=== PATIENT | female | born 1960 | race Caucasian/White ===

== ENCOUNTER 2020-02-23 06:33 | Outpatient (CLI) | payer BC, OTHER ==
[2020-02-24 10:56] LABS: SARS-CoV-2 MS2 Positive; SARS-CoV-2 N Gene Negative; SARS-CoV-2 S Gene Negative; SARS-CoV-2 orf1ab Negative
== END 2020-02-23 06:34 | disposition home or self-care (01) ==
LOC: LABBT 06:33
PROVIDERS: ATTEND Specialist
DX: Z01.812 Encounter for preprocedural laboratory examination (principal); Z11.59 Encounter for screening for other viral diseases; S02.2XXA Fracture of nasal bones, initial encounter for closed fracture
CPT/HCPCS: 85014; 87635; 93005; 93010; U0003

== ENCOUNTER 2020-02-25 09:17 | Day surgery (SDC) | payer BC ==
[2020-02-23 15:41] VITALS: BMI 24.3
[2020-02-25] MEDS ORDERED: AFRIN NASAL MIST 15 ML BOT ONE (10:31)
[2020-02-25] MEDS ORDERED: Lidocaine 1% w/Epinephrine 1:100K 20 ML VIAL ONE (10:31)
[2020-02-25] MEDS ORDERED: Bacitracin Zinc Ointment 30 gm TUBE ONE (10:31)
[2020-02-25] MEDS ORDERED: Fentanyl 100 MCG/2 ML VIAL ONE (10:49)
[2020-02-25] MEDS ORDERED: PROPOFOL 200 MG/20 ML VIAL ONE (12:18)
[2020-02-25] MEDS ORDERED: Dexamethasone 20 MG/5 ML VIAL ONE (12:18)
[2020-02-25] MEDS ORDERED: Ondansetron PF 4 MG/2 ML Vial ONE (12:18)
[2020-02-25] MEDS ORDERED: Lidocaine 1% PF 5 ML VIAL ONE (12:18)
[2020-02-25] MEDS ORDERED: Hydrocodone-Acetamin 15 ML UDCUP ONE (13:46)
[2020-02-25] MEDS ORDERED: HYDROcodone/Acetaminophen 5/325 mg Tablet ONE (15:00)
--- NOTE | 2020-02-26 05:45 | OP ---
DATE OF PROCEDURE: 02/25/2020 PREOPERATIVE DIAGNOSIS: Comminuted open nasal fracture. POSTOPERATIVE DIAGNOSIS: Comminuted open nasal fracture. PROCEDURES PERFORMED: 1. Closed reduction of comminuted nasal fracture with internal external splinting. 2. Complex wound closure measuring approximately 8 cm. DESCRIPTION OF PROCEDURE: After consent was obtained, the patient was identified and brought to the operating room table and placed in supine position. The patient was positioned for surgery and placed under laryngeal mask anesthesia. Nose was decongested and the wound was debrided. The stellate laceration was closed with 6-0 Monocryl for the deeper tissues and rapidly absorbent gut for the skin. At the completion of procedure, the nasal fractures were reduced and Mills splints were placed intranasally and an external splint was placed with care taken to maintain the reduction of the nasal bones. The patient was then awakened, extubated, and taken to the recovery room in stable condition prior to discharge home. Job ID: [id number]
== END 2020-02-25 14:56 | disposition home or self-care (01) ==
LOC: SDC 09:17
PROVIDERS: ATTEND Specialist
PROC: 0NSBXZZ Reposition Nasal Bone, External Approach (ICD-10-PCS; principal; 2020-02-25)
DX: S02.2XXA Fracture of nasal bones, initial encounter for closed fracture (principal); F41.9 Anxiety disorder, unspecified; Z79.899 Other long term (current) drug therapy
CPT/HCPCS: J1100; J2001; J2405; J2704; J3010

== ENCOUNTER 2020-07-07 13:05 | Emergency (ER) | payer BC, OTHER ==
[2020-07-07 14:11] LABS: #Basophils 0.1 thou/uL (0.0-0.2); #Eosinphils 0.2 thou/uL (0.0-0.7); #Lymphocytes 2.5 thou/uL (1.20-3.40); #Monocytes 0.5 thou/uL (0.11-0.59); #Neutrophils 5.5 thou/uL (1.40-6.50); %Basophils 1.1 % (0.0-1.0); %Eosinophils 2.1 % (0.0-10.0); %Lymphocytes 28.9 % (21.0-51.0); %Monocytes 5.2 % (0.0-10.0); %Neutrophils 62.8 % (42.0-75.0); Hemoglobin 14.8 g/dL (12.0-16.0); Mean Corpuscular HGB CONC 34.2 g/dL (32.0-36.0); Mean Corpuscular Hemoglobin 32.7 pg (27.0-31.0); Mean Corpuscular Volume 95.6 fL (78.0-98.0); Mean Platelet Volume 6.3 fL (7.4-10.4); Platelet Count 343 thou/uL (130-400); RBC Distribution Width 11.7 % (11.5-14.5); Red Blood Cell (RBC) Count 4.51 mill/uL (4.20-5.40); White Blood Cell (WBC) Count 8.7 thou/uL (4.8-10.8)
[2020-07-07 14:12] LABS: Bilirubin Negative (Negative); Blood, Urine Negative (Negative); Clarity Clear (Clear); Glucose, Urine (Dipstick) Normal (Negative); Ketone, Urine Negative (Negative); Leukocyte Negative Leu/uL (Negative); Nitrite Negative (Negative); Protein, Urine (Dipstick) 10 mg/dL (Neg-Trace); Specific Gravity, Urine 1.023 (1.002-1.036); Urobilinogen Normal mg/dL (Less than 2); pH, Urine 6.5 (5.0-9.0)
[2020-07-07 14:29] LABS: ALT (SGPT) 18 U/L (8-55); AST (SGOT) 19 U/L (5-34); Albumin 4.5 g/dL (3.5-5.0); Alkaline Phosphatase 61 U/L (40-110); Anion Gap 17 mmol/L (10-20); BUN (Urea Nitrogen) 17 mg/dL (9.8-20.1); Bilirubin, Total 0.3 mg/dL (0.2-1.2); Calc. Creatinine Clearance 0 mL/min (70-130); Calcium 8.8 mg/dL (7.8-10.44); Carbon Dioxide 23 mmol/L (22-29); Chloride 101 mmol/L (98-107); Estimated GFR-MDRD 65; Globulin 3.2 g/dL (2.4-3.5); Glucose 95 mg/dL (70-105); Lipase 37 U/L (8-78); Potassium 4.4 mmol/L (3.5-5.1); Protein, Total 7.7 g/dL (6.0-8.3); Sodium 137 mmol/L (136-145)
--- NOTE | 2020-07-07 15:58 | RAD ---
XR Chest 1 View Portable HISTORY: Near syncope, headache COMPARISON: None FINDINGS: The heart size is normal. The lungs are well expanded without focal areas of consolidation, pneumothorax or pleural effusions. IMPRESSION: No radiographic evidence of acute cardiopulmonary process.
== END 2020-07-07 16:30 | disposition home or self-care (01) ==
LOC: ERS 13:05
DX: R55 Syncope and collapse (principal); R10.12 Left upper quadrant pain; R11.2 Nausea with vomiting, unspecified; F41.9 Anxiety disorder, unspecified; F32.9 Major depressive disorder, single episode, unspecified; Z87.891 Personal history of nicotine dependence; Z79.899 Other long term (current) drug therapy
CPT/HCPCS: 36415; 71045; 80053; 81003; 83690; 84484; 85025; 85379; 93005